=== PATIENT | male | born 1965 | race Caucasian/White ===

== ENCOUNTER 2025-03-06 09:42 | Day surgery (SDC) | payer OTHER ==
[2025-03-06] MEDS ORDERED: LIDOCAINE HCL 2% 100 MG/5 ML IJ ONE (09:43)
[2025-03-06] MEDS ORDERED: methylPREDNISolone acetate IM ONE (09:43)
[2025-03-06] MEDS ORDERED: propofoL IV ONE (11:35)
--- NOTE | 2025-03-06 13:01 | XRAY ---
Indication: Bilateral L4-S1 MBB. Intraoperative fluoroscopy provided for 15 seconds. Single digital spot image submitted for interpretation demonstrates posterior needle tips projecting over expected left and right L4-S1 nerve roots. Correlate with intraoperative findings/report.
--- NOTE | 2025-03-06 13:07 | XRAY ---
15 seconds of fluoroscopy were used in surgery for a bilateral L4-S1 MBB.
[2025-03-06] MEDS ORDERED: Lactated Ringers 1,000 ML IV ONE (15:17)
== END 2025-03-06 12:03 | disposition home or self-care (01) ==
LOC: SDC-PAIN 09:42
PROVIDERS: ATTEND Psychiatry & Neurology Pain Medicine
DX: M47.817 Spondylosis without myelopathy or radiculopathy, lumbosacral region (principal); R73.03 Prediabetes

== ENCOUNTER 2025-04-03 12:03 | Day surgery (SDC) | payer OTHER ==
[2025-04-03] MEDS ORDERED: BUPIVACAINE 0.5% VIAL IJ ONE (12:04)
[2025-04-03] MEDS ORDERED: propofoL IV ONE (13:56)
[2025-04-03] MEDS ORDERED: Xylocaine-Mpf 2% 5 Ml Vial ONE (13:57)
--- NOTE | 2025-04-03 14:51 | XRAY ---
Indication: Bilateral L4-S1 MBB. Intraoperative fluoroscopy provided for 11 seconds. Single digital spot image submitted for interpretation demonstrates posterior needle tips projecting over expected left and right L4-S1 nerve roots. Correlate with intraoperative findings/report.
[2025-04-03] MEDS ORDERED: Lactated Ringers 1,000 ML IV ONE (14:52)
--- NOTE | 2025-04-03 16:59 | XRAY ---
11 seconds of fluoroscopy was used in surgery for a bilateral L4-S1 MBB.
== END 2025-04-03 14:26 | disposition home or self-care (01) ==
LOC: SDC-PAIN 12:03
PROVIDERS: ATTEND Psychiatry & Neurology Pain Medicine
DX: M47.817 Spondylosis without myelopathy or radiculopathy, lumbosacral region (principal); R73.03 Prediabetes